=== PATIENT | female | born 1945 ===

== ENCOUNTER 2018-04-20 13:10 | Inpatient (IN) | payer OTHER, MEDICAID ==
[2018-04-20 20:06] VITALS: BMI 34.7
[2018-04-20] MEDS ORDERED: guaiFENesin 200 mg/10 ml Syrup UD PO PRN (21:03)
[2018-04-20] MEDS: Tmp-Smz 800 mg-160 mg DS Tab PO SCH (21:59)
[2018-04-20] MEDS: Insulin Detemir 100 Units/ml Inj SC SCH (22:05)
[2018-04-20] MEDS: Insulin Lispro (humaLOG) 100 Units/ml Inj SC SCH (22:08)
[2018-04-21] MEDS: Albuterol-Ipratrop 3 mg / 0.5 (3 ml) UD INH SCH ×4 (01:00→19:09)
[2018-04-21] MEDS: Insulin Lispro (humaLOG) 100 Units/ml Inj SC SCH ×4 (06:56→21:18)
[2018-04-21] MEDS: Tmp-Smz 800 mg-160 mg DS Tab PO SCH ×2 (08:27→21:11)
[2018-04-21] MEDS: Enoxaparin 40 mg Syringe SC SCH (08:29)
[2018-04-21] MEDS: Metoprolol Succinate 100 mg XL Tab PO SCH (08:30)
[2018-04-21] MEDS: Insulin Detemir 100 Units/ml Inj SC SCH (21:13)
[2018-04-22] MEDS: Albuterol-Ipratrop 3 mg / 0.5 (3 ml) UD INH SCH ×4 (02:13→19:05)
[2018-04-22] MEDS: Insulin Lispro (humaLOG) 100 Units/ml Inj SC SCH ×4 (07:05→21:07)
[2018-04-22] MEDS: Enoxaparin 40 mg Syringe SC SCH (08:32)
[2018-04-22] MEDS: Tmp-Smz 800 mg-160 mg DS Tab PO SCH ×2 (08:33→21:09)
[2018-04-22] MEDS: Metoprolol Succinate 100 mg XL Tab PO SCH (08:34)
[2018-04-22] MEDS: Insulin Detemir 100 Units/ml Inj SC SCH (21:09)
[2018-04-23] MEDS: Albuterol-Ipratrop 3 mg / 0.5 (3 ml) UD INH SCH ×4 (02:01→19:16)
--- NOTE | 2018-04-23 04:25 | HP ---
HISTORY OF PRESENT ILLNESS: This is a 72-year-old female with history of multiple medical problems, who was admitted to transitional care unit for deconditioning and physical therapy and occupational therapy. The patient was in [facility] for congestive heart failure, and she was discharged to transitional care unit for the above reasons. REVIEW OF SYSTEMS: Other review of systems is negative. ALLERGIES: NO KNOWN ALLERGY. MEDICATIONS: Reviewed as per MAR and ordered. PAST MEDICAL HISTORY: Positive for hypertriglyceridemia, type 2 diabetes mellitus, status post kidney transplant, and hypertension. SOCIAL HISTORY: No history of smoking, EtOH, or substance abuse. FAMILY HISTORY: Not contributory. PHYSICAL EXAMINATION: GENERAL: The patient is in bed, not in any cardiopulmonary distress. VITAL SIGNS: Blood pressure 130/70, temperature 98.2, respiratory rate 18, and pulse 78. HEENT: Pupils equal and reactive to light. Normal-appearing mucosa of the conjunctivae, oropharynx, and nasal membrane mucosa. NECK: Supple. No JVD. No carotid bruit. No lymph node. No thyromegaly. CHEST AND LUNGS: Bilateral symmetrical expansion. Good air exchange. No rales, no rhonchi. CARDIOVASCULAR: PMI not localized. S1, S2. No additional sounds. ABDOMEN: Normoactive bowel sounds. No tenderness. No organomegaly. No masses. EXTREMITIES: Bilateral leg edema. CENTRAL NERVOUS SYSTEM: Alert, awake, and oriented x2. No neurological deficit could be appreciated. ASSESSMENT: 1. History of congestive heart failure. 2. Type 2 diabetes mellitus. 3. Hypertension. 4. Hypertriglyceridemia. PLAN: Continue Accu-Cheks with insulin coverage. Resume the patient's medications, physical therapy, and occupational therapy. We will monitor electrolytes and we will add diabetes medications as needed. Nelson Peraza MD
[2018-04-23] MEDS: Insulin Lispro (humaLOG) 100 Units/ml Inj SC SCH ×5 (06:59→21:52)
[2018-04-23 07:05] LABS: HEMOGLOBIN 12.5 g/dL (12.0-16.0); MEAN CELL VOLUME 74.1 fl (81.0-99.0); MEAN CORPUSCULAR HEMOGLOBIN 23.3 pg (27.0-31.0); MEAN CORPUSCULAR HGB CONC 31.5 g/dL (33.0-37.0); RBC 5.36 Mil/uL (3.80-5.20); RED CELL DISTRIBUTION WIDTH 19.6 % (11.5-14.5); WHITE BLOOD COUNT 13.5 K/uL (4.8-10.8)
[2018-04-23 07:16] LABS: ALB/GLOB RATIO 1.1 (1.0-2.1); ALBUMIN 4.2 g/dL (3.5-5.0); ALT/SGPT 22 U/L (9-52); AST/SGOT 22 U/L (14-36); BLOOD UREA NITROGEN 32 mg/dl (7-17); CALCIUM 9.5 mg/dL (8.4-10.2); GFR NON-AFRICAN AMERICAN > 60
[2018-04-23] MEDS: Enoxaparin 40 mg Syringe SC SCH (08:00)
[2018-04-23] MEDS: Metoprolol Succinate 100 mg XL Tab PO SCH (08:02)
[2018-04-23] MEDS: Tmp-Smz 800 mg-160 mg DS Tab PO SCH ×2 (09:33→20:54)
--- NOTE | 2018-04-23 17:59 | CP.PCM.CON ---
History of Present Illness - History of Present Illness History of Present Illness: Dr. Villatoro PMR consultation on Antonieta Gomez, born 1945 who is quite contradictory in her history. She denies pain to me but staff had her complaining of knee pain. She states that she has no pain but suffers for many years with arthritis in the knees. Sit to stand was normal. there is minimal synovial changes and there is no clear joint effusion. I asked if she feels that she needs to have an injection in the knees and she denies the necessity. Review of Systems - Constitutional Constitutional: absent: Chills - EENT Eyes: absent: Change in Vision Ears: absent: Ear Discharge Nose/Mouth/Throat: Nasal Congestion - Cardiovascular Cardiovascular: absent: Chest Pain, Claudication - Respiratory Respiratory: Dyspnea on Exertion. 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 - HEENT Hx HEENT Problems: No - RENAL Hx Chronic Kidney Disease: No - ENDOCRINE/METABOLIC Hx Endocrine Disorders: No Hx Diabetes Mellitus Type 2: Yes - HEMATOLOGICAL/ONCOLOGICAL Hx Blood Disorders: No - INTEGUMENTARY Hx Dermatological Problems: No - MUSCULOSKELETAL/RHEUMATOLOGICAL Hx Arthritis: Yes Hx Falls: No - GASTROINTESTINAL Hx Gastrointestinal Disorders: No - GENITOURINARY/GYNECOLOGICAL Hx Genitourinary Disorders: No - PSYCHIATRIC Hx Substance Use: No - SURGICAL HISTORY Hx Cataract Extraction: Yes Hx Cardiac Catheterization: Yes (2011) - ANESTHESIA Hx Anesthesia: Yes Hx Anesthesia Reactions: No Hx Malignant Hyperthermia: No Meds Allergies/Adverse Reactions: Allergies Allergy/AdvReac Type Severity Reaction Status Date / Time No Known Allergies Allergy Verified 02/26/18 00:01 - Medications Medications: Current Medications Acetaminophen (Tylenol 325mg Tab) 650 mg PO Q6 PRN PRN Reason: Pain, Mild (1-3) Albuterol/Ipratropium (Duoneb 3 Mg/0.5 Mg (3 Ml) Ud) 3 ml INH RQ6 [facility] Last Admin: 04/23/18 13:18 Dose: Not Given Aspirin (Aspirin Chewable) 81 mg PO DAILY [facility] Last Admin: 04/23/18 08:05 Dose: 81 mg Atorvastatin Calcium (Lipitor) 20 mg PO HS [facility] Last Admin: 04/22/18 21:09 Dose: 20 mg Enoxaparin Sodium (Lovenox) 40 mg SC DAILY [facility]; Protocol Last Admin: 04/23/18 08:00 Dose: 40 mg Furosemide (Lasix) 40 mg PO DAILY [facility] Last Admin: 04/23/18 08:01 Dose: 40 mg Gemfibrozil (Lopid) 600 mg PO BID [facility] Last Admin: 04/23/18 16:49 Dose: 600 mg Guaifenesin (Robitussin) 200 mg PO Q4H PRN PRN Reason: Cough and congestion Insulin Detemir (Levemir) 70 units SC HS [facility] Insulin Human Lispro (Humalog) 10 units SC AC [facility] Last Admin: 04/23/18 16:50 Dose: 10 units Insulin Human Lispro (Humalog) 0 units SC ACHS [facility] Last Admin: 04/23/18 16:50 Dose: 3 units Losartan Potassium (Cozaar) 100 mg PO DAILY [facility] Last Admin: 04/23/18 08:03 Dose: 100 mg Metoprolol Succinate (Toprol Xl) 100 mg PO DAILY [facility] Last Admin: 04/23/18 08:02 Dose: 100 mg Mycophenolate Mofetil (Cellcept Cap) 250 mg PO BID [facility] Last Admin: 04/23/18 16:49 Dose: 250 mg Prednisone (Prednisone Tab) 10 mg PO DAILY [facility] Sitagliptin Phosphate (Januvia) 50 mg PO DAILY [facility] Trimethoprim/Sulfamethoxazole (Bactrim Ds Tab) 1 tab PO Q12H [facility]; Protocol Last Admin: 04/23/18 09:33 Dose: 1 tab Physical Exam - Constitutional Appears: Non-toxic - Head Exam Head Exam: ATRAUMATIC, NORMAL INSPECTION, NORMOCEPHALIC - Eye Exam Eye Exam: EOMI - ENT Exam ENT Exam: Mucous Membranes Moist - Respiratory Exam Respiratory Exam: Decreased Breath Sounds - Cardiovascular Exam Cardiovascular Exam: REGULAR RHYTHM Results - Vital Signs Recent Vital Signs: Last Vital Signs Temp 97.7 F 04/23/18 16:20 Pulse 67 04/23/18 16:20 Resp 20 04/23/18 16:20 BP 144/88 04/23/18 16:20 Pulse Ox 95 04/23/18 16:20 - Labs Result Diagrams: 04/23/18 06:30 04/23/18 06:30 Labs: Laboratory Results - last 24 hr 04/22/18 04/23/18 04/23/18 20:49 05:27 06:30 WBC 13.5 H RBC 5.36 H Hgb 12.5 Hct 39.7 MCV 74.1 L MCH 23.3 L MCHC 31.5 L RDW 19.6 H Plt Count 428 H Sodium Potassium Chloride Carbon Dioxide Anion Gap BUN Creatinine Est GFR ( Amer) Est GFR (Non-Af Amer) POC Glucose (mg/dL) 327 H 234 H Random Glucose Calcium Total Bilirubin AST ALT Alkaline Phosphatase Total Protein Albumin Globulin Albumin/Globulin Ratio 04/23/18 04/23/18 04/23/18 06:30 10:57 16:18 WBC RBC Hgb Hct MCV MCH MCHC RDW Plt Count Sodium 128 L Potassium 4.6 Chloride 82 L Carbon Dioxide 34 H Anion Gap 17 BUN 32 H Creatinine 0.9 Est GFR ( Amer) > 60 Est GFR (Non-Af Amer) > 60 POC Glucose (mg/dL) 423 H* 319 H Random Glucose 241 H Calcium 9.5 Total Bilirubin 0.4 AST 22 ALT 22 Alkaline Phosphatase 70 Total Protein 7.8 Albumin 4.2 Globulin 3.7 Albumin/Globulin Ratio 1.1 Assessment & Plan - Assessment and Plan (Free Text) Assessment: elderly female with not sufficient pain to warrant an injection she will continue with therapies
[2018-04-23] MEDS: Insulin Detemir 100 Units/ml Inj SC SCH (21:01)
[2018-04-24] MEDS: Albuterol-Ipratrop 3 mg / 0.5 (3 ml) UD INH SCH ×4 (01:16→19:38)
--- NOTE | 2018-04-24 01:52 | PN ---
DATE: 04/23/2018 SUBJECTIVE: The patient is seen today, 04/23/2018. She is not in any cardiopulmonary distress. OBJECTIVE: VITAL SIGNS: Blood pressure is 124/66, temperature 96.8, respiratory rate 20, and pulse 65. HEENT: Pupils equal and reactive to light. Normal-appearing mucosa of the conjunctivae, oropharynx, and nasal membrane mucosa. NECK: Supple. No JVD. No carotid bruit. No lymph node. No thyromegaly. CHEST AND LUNGS: Bilateral symmetrical expansion. Good air exchange. No rales, no rhonchi. CARDIOVASCULAR SYSTEM: PMI not localized. S1, S2. No additional sounds. ABDOMEN: Normoactive bowel sounds. No tenderness. No organomegaly. No masses. EXTREMITIES: No cyanosis, clubbing, no edema. CENTRAL NERVOUS SYSTEM: Alert, awake, oriented x2. No neurological deficit could be appreciated. ASSESSMENT: Subacute rehabilitation, hypertension, type 2 diabetes mellitus, status post lower respiratory tract infection. PLAN: Continue current physical therapy, occupational therapy, and current medications. Start metformin. Nelson Peraza MD
--- NOTE | 2018-04-24 02:11 | CON ---
DATE: 04/23/2018HISTORY OF PRESENT ILLNESS: This is a 72-year-old female with known history of type 2 insulin-requiring diabetes presenting to [facility] with progressive shortness of breath and evaluated to be in congestive heart failure with concomitant pneumonia and has now been transferred to [facility] for physical and occupational therapy because of recent deconditioning. PAST MEDICAL HISTORY: As mentioned above, history of type 2 insulin-requiring diabetes using Lantus at 60 units subcu at bedtime daily with NovoLog given as a coverage scale as ordered. History of hypertension and dyslipidemia, history of previous renal insufficiency and subsequent renal transplant and currently on immunosuppressive therapy with prednisone also given as 10 mg once daily. FAMILY HISTORY: Positive for hypertension and heart disease. SOCIAL HISTORY: The patient has supportive family. No known substance use. REVIEW OF SYSTEMS: As mentioned above. Admits to generalized body weakness with episodic bouts of dizziness and lightheadedness, worse on the day of admission. No chest pains or palpitations, but admits to progressive shortness of breath initially on exertion and then at rest with paroxysmal nocturnal dyspnea. Her oral intake has been variable otherwise with occasional dyspepsia and habitual constipation. Also admits to recent polyuria, nocturia and polydipsia. PHYSICAL EXAMINATION: GENERAL: She is an overweight female, in no apparent distress. VITAL SIGNS: Blood pressure of 150/90, pulse of 100 beats per minute regular, temperature 98, respirations 20. Height is 5 feet 4 inches, weight is 202 pounds. HEENT: Head: Normocephalic. Eyes: Anicteric with pink conjunctivae. Funduscopy is not possible at this time. Ears, nose and throat otherwise normal. NECK: Supple. Thyroid gland is normal in size. No carotid bruits or any cervical adenopathy. CARDIOPULMONARY: Some adynamic precordium. S1, S2 is rapid and regular. LUNGS: Clear to auscultation. ABDOMEN: Flat, soft with positive bowel sounds. EXTREMITIES: No peripheral edema. Pulses are +2 bilaterally. LABORATORY DATA: Her chemistries showed a BUN of 32, sodium 128, potassium 4.6, chloride 82, CO2 34, glucose 241 and creatinine 0.9. Her latest glucose today was 423 mg/dL, it was 234 as fasting this morning and was 327 at bedtime last night. ASSESSMENT: This is a 72-year-old female with uncontrolled and decompensated type 2 insulin-requiring diabetes with marked hyperglycemic accelerations and clearly has suboptimal therapeutic regimen at this time. She has been transferred from [facility] where she was admitted for congestive heart failure and concomitant pneumonia and has been transferred here to [facility] for physical and occupational therapy because of marked deconditioning. PLAN OF MANAGEMENT: We will initiate a more physiologic basal and bolus insulin drug combination to be started today as ordered. We will add Humalog given as 10 units subcu t.i.d. before meals to start today at dinnertime. We will also continue the low-dose correction scale using Humalog insulin as ordered. We will modify the coverage scale to obviate hypoglycemia and detailed orders have been given. A hemoglobin A1c will be done to confirm her prior glycemic control and baseline thyroid function studies will be ordered. We will obtain serial chemistries and supplement accordingly as needed. We will follow. Ilene Costa MD
[2018-04-24] MEDS: Insulin Lispro (humaLOG) 100 Units/ml Inj SC SCH ×7 (06:36→22:26)
[2018-04-24 06:44] LABS: ALB/GLOB RATIO 1.1 (1.0-2.1); ALT/SGPT 24 U/L (9-52); AST/SGOT 19 U/L (14-36); BLOOD UREA NITROGEN 29 mg/dl (7-17); CALCIUM 9.5 mg/dL (8.4-10.2); GFR NON-AFRICAN AMERICAN > 60; HDL CHOLESTEROL 54 MG/DL (30-70)
[2018-04-24 06:55] LABS: LDL CHOLESTEROL 32 mg/dL (0-129)
[2018-04-24] MEDS: Metoprolol Succinate 100 mg XL Tab PO SCH (08:11)
[2018-04-24] MEDS: Enoxaparin 40 mg Syringe SC SCH (08:12)
[2018-04-24] MEDS: Tmp-Smz 800 mg-160 mg DS Tab PO SCH ×2 (08:15→22:20)
[2018-04-24] MEDS: Insulin Detemir 100 Units/ml Inj SC SCH (22:18)
[2018-04-25] MEDS: Albuterol-Ipratrop 3 mg / 0.5 (3 ml) UD INH SCH ×3 (02:47→13:04)
--- NOTE | 2018-04-25 04:38 | PN ---
DATE: 04/24/2018 ENDOCRINOLOGY FOLLOWUP NOTE LOCATION: In room 709. This is a 72-year-old female with recent uncontrolled type 2 insulin-requiring diabetes, now being followed closely for metabolic management. Her glycemic levels are fluctuating, but improved, and the glucose values today have ranged from 267-389 mg per dL. Her bedtime glucose was 283 mg per dL with a fasting glucose of 235 mg per dL. Her hemoglobin A1c was elevated at 9.8% indicative of suboptimal metabolic control of her diabetic condition even prior to this admission. Her latest chemistry showed a BUN of 29, sodium 125, potassium 4.8, chloride 84, CO2 of 32, glucose 221, and creatinine 0.8. So at this time, we will modify once again her prandial insulin and increase the Humalog to 12 units subcutaneously t.i.d. before meals to start today as ordered. We will also continue the modified and higher dosing of the basal insulin given as Levemir at 70 units subcuateously at bedtime daily as ordered. We will continue the low-dose correction scale using Humalog insulin as ordered. We will obtain serial chemistries and supplement accordingly as needed. We will follow. Ilene Costa MD
[2018-04-25] MEDS: Insulin Lispro (humaLOG) 100 Units/ml Inj SC SCH ×7 (06:47→21:54)
[2018-04-25] MEDS: Enoxaparin 40 mg Syringe SC SCH (08:04)
[2018-04-25] MEDS: Metoprolol Succinate 100 mg XL Tab PO SCH (09:00)
[2018-04-25] MEDS: Tmp-Smz 800 mg-160 mg DS Tab PO SCH ×2 (09:15→21:53)
--- NOTE | 2018-04-25 18:24 | CP.PCM.PN ---
Subjective - Date & Time of Evaluation Date of Evaluation: 04/25/18 Time of Evaluation: 18:12 - Subjective Subjective: Patient seen in the room doing well son is present sit to stand independently and neg Rhomberg continue current care Objective - Vital Signs/Intake and Output Vital Signs (last 24 hours): Temp Pulse Resp BP Pulse Ox 97.3 F L 58 L 20 111/67 98 04/25/18 15:52 04/25/18 15:52 04/25/18 15:52 04/25/18 15:52 04/25/18 15:52 - Medications Medications: Current Medications Acetaminophen (Tylenol 325mg Tab) 650 mg PO Q6 PRN PRN Reason: Pain, Mild (1-3) Albuterol/Ipratropium (Duoneb 3 Mg/0.5 Mg (3 Ml) Ud) 3 ml INH RQ6 [facility] Last Admin: 04/25/18 13:04 Dose: Not Given Aspirin (Aspirin Chewable) 81 mg PO DAILY [facility] Last Admin: 04/25/18 08:06 Dose: 81 mg Atorvastatin Calcium (Lipitor) 20 mg PO HS [facility] Last Admin: 04/24/18 22:19 Dose: 20 mg Enoxaparin Sodium (Lovenox) 40 mg SC DAILY [facility]; Protocol Last Admin: 04/25/18 08:04 Dose: 40 mg Gemfibrozil (Lopid) 600 mg PO BID [facility] Last Admin: 04/25/18 16:30 Dose: 600 mg Guaifenesin (Robitussin) 200 mg PO Q4H PRN PRN Reason: Cough and congestion Insulin Detemir (Levemir) 70 units SC HS [facility] Last Admin: 04/24/18 22:18 Dose: 70 units Insulin Human Lispro (Humalog) 0 units SC ACHS [facility] Last Admin: 04/25/18 16:37 Dose: Not Given Insulin Human Lispro (Humalog) 12 units SC AC [facility] Last Admin: 04/25/18 16:37 Dose: 12 units Losartan Potassium (Cozaar) 100 mg PO DAILY [facility] Last Admin: 04/25/18 08:06 Dose: 100 mg Metoprolol Succinate (Toprol Xl) 100 mg PO DAILY [facility] Last Admin: 04/25/18 09:00 Dose: 100 mg Mycophenolate Mofetil (Cellcept Cap) 250 mg PO BID [facility] Last Admin: 04/25/18 16:30 Dose: 250 mg Prednisone (Prednisone Tab) 10 mg PO DAILY [facility] Last Admin: 04/25/18 08:05 Dose: 10 mg Sitagliptin Phosphate (Januvia) 50 mg PO DAILY [facility] Last Admin: 04/25/18 08:07 Dose: 50 mg Trimethoprim/Sulfamethoxazole (Bactrim Ds Tab) 1 tab PO Q12H [facility]; Protocol Last Admin: 04/25/18 09:15 Dose: 1 tab - Labs Labs: 04/23/18 06:30 04/24/18 05:50
[2018-04-25] MEDS: Insulin Detemir 100 Units/ml Inj SC SCH (21:50)
[2018-04-26] MEDS: Albuterol-Ipratrop 3 mg / 0.5 (3 ml) UD INH SCH ×3 (01:53→13:04)
[2018-04-26] MEDS: Insulin Lispro (humaLOG) 100 Units/ml Inj SC SCH ×7 (06:41→21:38)
[2018-04-26 07:30] LABS: ALBUMIN 3.7 g/dL (3.5-5.0); ALT/SGPT 18 U/L (9-52); AST/SGOT 20 U/L (14-36); BLOOD UREA NITROGEN 28 mg/dl (7-17); CALCIUM 9.3 mg/dL (8.4-10.2); GFR NON-AFRICAN AMERICAN > 60
[2018-04-26] MEDS: Metoprolol Succinate 100 mg XL Tab PO SCH (08:16)
[2018-04-26] MEDS: Tmp-Smz 800 mg-160 mg DS Tab PO SCH ×2 (08:17→21:19)
[2018-04-26] MEDS: Enoxaparin 40 mg Syringe SC SCH (08:20)
[2018-04-26 08:38] LABS: HEMOGLOBIN 12.8 g/dL (12.0-16.0); MEAN CELL VOLUME 73.3 fl (81.0-99.0); MEAN CORPUSCULAR HEMOGLOBIN 23.3 pg (27.0-31.0); MEAN CORPUSCULAR HGB CONC 31.7 g/dL (33.0-37.0); RBC 5.51 Mil/uL (3.80-5.20); WHITE BLOOD COUNT 11.4 K/uL (4.8-10.8)
[2018-04-26] MEDS: Sodium Chloride 0.9% 1,000 ML IV SCH ×2 (12:39→21:32)
--- NOTE | 2018-04-26 18:37 | PN ---
DATE: 04/26/2018 ENDOCRINOLOGY FOLLOWUP NOTE LOCATION: In ICU room 709. SUBJECTIVE: This is a 72-year-old female with recent admission for congestive heart failure at [facility] and [facility] and occupational therapy and is also being followed closely for metabolic management because of known history of uncontrolled type 2 insulin-requiring diabetes with recent hyperglycemic accelerations as noted thereof. Her glucose levels are fluctuating as noted overnight with glucose levels ranging from 267 to 309 mg/dL. LABORATORY DATA: Her latest chemistry showed a BUN of 28, sodium 124, potassium 4.9, chloride 87, CO2 of 28, glucose 203, and creatinine 0.8. ASSESSMENT AND PLAN: So at this time, we will modify once again her basal and bolus insulin regimen and increase the Humalog to 14 units subcutaneously t.i.d. before meals to start today as ordered. We will continue the low-dose correction scale using Humalog insulin to obviate hypoglycemia and detailed orders have been given. Moreover, we will increase and titrate her basal insulin, which is already actually a very huge dose of Levemir 70 units at bedtime daily as ordered. We will consider the titration to 74 or 76 units as indicated. We will follow. Ilene Costa MD
[2018-04-26] MEDS: Insulin Detemir 100 Units/ml Inj SC SCH (21:21)
[2018-04-27] MEDS: Albuterol-Ipratrop 3 mg / 0.5 (3 ml) UD INH SCH ×4 (01:48→19:13)
[2018-04-27] MEDS: Insulin Lispro (humaLOG) 100 Units/ml Inj SC SCH ×6 (06:41→16:41)
[2018-04-27] MEDS: Sodium Chloride 0.9% 1,000 ML IV SCH ×3 (06:42→23:00)
[2018-04-27 07:44] LABS: ALBUMIN 3.5 g/dL (3.5-5.0); ALT/SGPT 17 U/L (9-52); AST/SGOT 27 U/L (14-36); BLOOD UREA NITROGEN 22 mg/dl (7-17); CALCIUM 9.1 mg/dL (8.4-10.2); GFR NON-AFRICAN AMERICAN > 60
[2018-04-27] MEDS: Enoxaparin 40 mg Syringe SC SCH (08:01)
[2018-04-27] MEDS: Metoprolol Succinate 100 mg XL Tab PO SCH (08:05)
[2018-04-27] MEDS: Tmp-Smz 800 mg-160 mg DS Tab PO SCH ×2 (08:39→21:25)
--- NOTE | 2018-04-27 19:44 | PN ---
DATE: 04/27/2018 ENDOCRINOLOGY FOLLOWUP NOTE LOCATION: Room #709. SUBJECTIVE: This is a 72-year-old female with recent uncontrolled type 2 insulin-requiring diabetes now being followed closely for metabolic management. She was previously on IV steroid therapy and switched over to oral steroids and was transferred here from [facility] for management of congestive heart failure as noted thereof. Her glycemic levels are fluctuating but improved and the glucose values overnight have ranged from 174 to 267 mg/dl. It was 290 at bedtime last night. The chemistry showed a BUN of 22, sodium 129, potassium 4.9, chloride 92, CO2 of 29, glucose 186 and creatinine 0.8. So at this time, we will continue the modified basal and bolus insulin regimen to allow for dose equilibration and keep her on the Levemir given as 70 units subcutaneous at bedtime daily as ordered. We will continue the Humalog given as 14 units subcutaneous t.i.d. before meals as ordered. She has been advised to resume her home insulin regimen upon discharge as this high dose regimen here in the hospital was only to cover the increased insulin resistance and impaired glucose tolerance thereof from the steroid therapy as given. We will obtain serial chemistry and supplement accordingly as needed. We will follow up. Ilene Costa MD
[2018-04-27] MEDS: Insulin Detemir 100 Units/ml Inj SC SCH (21:25)
[2018-04-28] MEDS: Insulin Lispro (humaLOG) 100 Units/ml Inj SC SCH ×8 (01:41→21:08)
[2018-04-28] MEDS: Sodium Chloride 0.9% 1,000 ML IV SCH ×2 (02:48→14:03)
[2018-04-28] MEDS: Albuterol-Ipratrop 3 mg / 0.5 (3 ml) UD INH SCH ×3 (02:53→13:10)
[2018-04-28] MEDS: Metoprolol Succinate 100 mg XL Tab PO SCH (09:16)
[2018-04-28] MEDS: Enoxaparin 40 mg Syringe SC SCH (09:17)
[2018-04-28] MEDS: Tmp-Smz 800 mg-160 mg DS Tab PO SCH ×2 (09:42→21:00)
--- NOTE | 2018-04-28 20:23 | PN ---
DATE: 04/28/2018 LOCATION: Room 709. SUBJECTIVE: This is a 72-year-old female with recent uncontrolled type 2 insulin-requiring diabetes and has recently improved from a bout of pulmonary edema with concomitant pneumonia and is undergoing physical and occupational therapy as noted. Her glycemic levels are still fluctuating with a recent steroid usage and increased insulin resistance thereof. Her glucose levels have ranged from 117 to 207 and 242 mg/dL. LABORATORY DATA: Her latest chemistry showed a BUN of 22, sodium 129, potassium 4.9, chloride 92, CO2 of 29, glucose 186 and creatinine 0.8. PLAN OF MANAGEMENT: So at this time, we will continue the same basal and bolus insulin regimen to allow for dose equilibration and keep her on the Levemir given as 70 units subcu at bedtime daily as ordered. We will continue the Humalog given as 14 units subcu t.i.d. before meals as ordered. We will also continue her Januvia at 50 mg once daily as ordered. We will obtain serial chemistries and supplement accordingly as needed. We will follow. Ilene Costa MD
[2018-04-28] MEDS: Insulin Detemir 100 Units/ml Inj SC SCH (21:02)
[2018-04-29] MEDS: Albuterol-Ipratrop 3 mg / 0.5 (3 ml) UD INH SCH ×3 (01:07→13:02)
[2018-04-29] MEDS: Sodium Chloride 0.9% 1,000 ML IV SCH (02:52)
[2018-04-29] MEDS: Insulin Lispro (humaLOG) 100 Units/ml Inj SC SCH ×4 (06:32→11:55)
[2018-04-29 07:06] LABS: ALBUMIN 3.4 g/dL (3.5-5.0); ALT/SGPT 24 U/L (9-52); AST/SGOT 17 U/L (14-36); BLOOD UREA NITROGEN 15 mg/dl (7-17); CALCIUM 9.1 mg/dL (8.4-10.2); GFR NON-AFRICAN AMERICAN > 60
[2018-04-29 08:20] VITALS: BP 117/65; PULSE 65; RESP 18; TEMP 97.8; O2SAT 98
[2018-04-29] MEDS: Enoxaparin 40 mg Syringe SC SCH (08:25)
[2018-04-29] MEDS: Tmp-Smz 800 mg-160 mg DS Tab PO SCH (08:26)
[2018-04-29] MEDS: Metoprolol Succinate 100 mg XL Tab PO SCH (08:27)
--- NOTE | 2018-04-29 08:46 | PN ---
DATE: 04/26/2018 SUBJECTIVE: The patient was seen today, 04/26/2018. She is not in any cardiopulmonary distress. OBJECTIVE: VITAL SIGNS: Blood pressure 123/72, temperature 98.1, respiratory rate 20, and pulse 57. HEENT: Pupils equal and reactive to light. Normal-appearing mucosa of the conjunctivae, oropharynx, and nasal membrane mucosa. NECK: Supple. No JVD. No carotid bruit. No lymph node. No thyromegaly. CHEST AND LUNGS: Bilateral symmetrical expansion. Good air exchange. No rales, no rhonchi. CARDIOVASCULAR SYSTEM: PMI not localized. S1, S2. No additional sounds. ABDOMEN: Normoactive bowel sounds. No tenderness. No organomegaly. No masses. EXTREMITIES: No cyanosis, no clubbing, no edema. CENTRAL NERVOUS SYSTEM: Alert, awake, oriented x2. Moves all extremities equally. Blood work today showed sodium of 124, potassium 4.9, BUN of 28, creatinine 0.8. ASSESSMENT: 1. Prerenal azotemia, hyponatremia likely secondary to diuretic overuse. 2. History of congestive heart failure/chronic obstructive pulmonary disease. PLAN: We will start normal saline and monitor electrolytes. We will taper steroids. Nelson Peraza MD
--- NOTE | 2018-04-29 09:27 | PN ---
DATE: 04/25/2018 ENDOCRINOLOGY FOLLOWUP NOTE LOCATION: In room 709. SUBJECTIVE: This is a 72-year-old female transferred from [facility] for management of congestive heart failure and underlying pneumonitis, and currently here in TCU in [facility] for deconditioning and ongoing physical and occupational therapy as given. Her glycemic levels are fluctuating, but improved overnight with glucose values ranging from 176 to 233 mg/dL. It was 297 at bedtime last night. LABORATORY DATA: Her A1c is elevated at 9.8% as noted. Her chemistry showed a BUN of 29, sodium 125, potassium 4.8, chloride 84, CO2 of 32, glucose 221, and creatinine 0.8. ASSESSMENT: This is a 72-year-old female with uncontrolled and decompensated type 2 insulin-requiring diabetes with marked hyperglycemic accelerations related to a subtherapeutic insulin regimen and is now being followed closely for metabolic management. She presented to [facility] with congestive heart failure and underlying pneumonitis and has improved clinically and hemodynamically as noted thereof. PLAN OF MANAGEMENT: We will continue the modified basal and bolus insulin regimen as given and Humalog to be given at 12 units subcu t.i.d. to start this morning as ordered. We will continue the basal insulin given as Levemir at 70 units subcu at bedtime daily as given. We will continue her Januvia given as 50 mg once daily as ordered. We will also continue the low-dose correction scale using Humalog insulin as ordered. We will obtain serial chemistries and supplement accordingly as needed. We will follow. Ilene Costa MD
--- NOTE | 2018-04-30 01:13 | PN ---
DATE: 04/29/2018 LOCATION: Room 709. SUBJECTIVE: This is a 72-year-old female with recent uncontrolled type 2 insulin-requiring diabetes, now being followed closely for metabolic management. Her glycemic levels are fluctuating, but improved, and the glucose levels overnight have ranged from 181 to 225 mg/dL. LABORATORY DATA: Her chemistry showed a BUN of 15, sodium 131, potassium 4.8, chloride 93, CO2 29, glucose 176 and creatinine 0.7. PLAN OF MANAGEMENT: So at this time, as she is scheduled for possible discharge, she has been advised to resume her home insulin regimen, which was given by Dr. Peraza, her primary physician, otherwise. For inpatient diabetic management, we will continue her Humalog given as 14 units before meals t.i.d. and Levemir given as 70 units subcu at bedtime daily as given. We will continue the Januvia given as 50 mg once daily as ordered. We will obtain serial chemistries and supplement accordingly as needed. We will follow. Ilene Costa MD
== END 2018-04-29 14:50 | disposition home or self-care (01) | DRG 292 ==
LOC: H.TCU 20:07
PROVIDERS: ADMIT Internal Medicine; ATTEND Internal Medicine
PROC: F07Z9FZ Gait Training/Functional Ambulation Treatment using Assistive, Adaptive, Supportive or Protective Equipment (ICD-10-PCS; principal; 2018-04-20)
PROC: F08Z4FZ Home Management Treatment using Assistive, Adaptive, Supportive or Protective Equipment (ICD-10-PCS; 2018-04-20)
PROC: F07M6FZ Therapeutic Exercise Treatment of Musculoskeletal System - Whole Body using Assistive, Adaptive, Supportive or Protective Equipment (ICD-10-PCS; 2018-04-21)
DX: I11.0 Hypertensive heart disease with heart failure (principal); E87.1 Hypo-osmolality and hyponatremia; Z94.0 Kidney transplant status; I50.9 Heart failure, unspecified; E11.65 Type 2 diabetes mellitus with hyperglycemia; E78.1 Pure hyperglyceridemia; E78.5 Hyperlipidemia, unspecified; M17.0 Bilateral primary osteoarthritis of knee; J44.9 Chronic obstructive pulmonary disease, unspecified; Z87.01 Personal history of pneumonia (recurrent); Z79.4 Long term (current) use of insulin